=== PATIENT | male | born 1990 | race Caucasian/White ===

== ENCOUNTER 2018-01-29 16:20 | Emergency (ER) | payer OTHER ==
[2018-01-29 16:24] VITALS: BP 125/73
[2018-01-29] MEDS ORDERED: Diphtheria,Pertussis(Acell),Tetanus Vaccine 0.5 ML SDV IM ONE (17:01)
--- NOTE | 2018-01-29 17:09 | EDM.PDOC ---
ED HPI GENERAL MEDICAL PROBLEM - General Chief Complaint: Laceration Stated Complaint: Laceration Time Seen by Provider: 01/29/18 16:50 Source of Information: Reports: Patient ([id number]) History Limitations: Reports: No Limitations - History of Present Illness INITIAL COMMENTS - FREE TEXT/NARRATIVE: Patient is a 27-year-old who was brought in from bowel With a laceration in the forehead at the level of the nose bridge is approximately 2 cm long patient states that while putting a boon on a Bobcat the boom hit him in the forehead causing the laceration at present time the bleeding is controlled Onset: Today Duration: Minutes: Location: Reports: Head Quality: Reports: Dull Severity: Mild Improves with: Reports: Other (Pressure) Worsens with: Reports: None Context: Reports: Trauma Associated Symptoms: Reports: No Other Symptoms Left Head Pain Score (Numeric/FACES): 1 - Related Data Allergies Allergy/AdvReac Type Severity Reaction Status Date / Time amoxicillin trihydrate Allergy Rash Verified 01/29/18 16:21 [From Augmentin] potassium clavulanate Allergy Rash Verified 01/29/18 16:21 [From Augmentin] Home Meds: Home Meds Escitalopram Oxalate [Lexapro] 20 mg PO DAILY 04/06/16 [History] Levothyroxine 75 mcg PO ACBREAKFAST 04/06/16 [History] Simvastatin [Simvastatin] 20 mg PO DAILY 04/06/16 [History] Past Medical History HEENT History: Reports: Hard of Hearing, Impaired Vision Cardiovascular History: Reports: High Cholesterol Psychiatric History: Reports: Depression Endocrine/Metabolic History: Reports: Hypothyroidism - Past Surgical History HEENT Surgical History: Reports: Cataract Surgery, Other (See Below) Other HEENT Surgeries/Procedures: [place] tooth extraction Social & Family History - Tobacco Use Smoking Status *Q: Current Every Day Smoker Years of Tobacco use: 12 Packs/Tins Daily: 1 - Caffeine Use Caffeine Use: Reports: Soda Other Caffeine Use: 48 oz daily - Alcohol Use Days Per Week of Alcohol Use: 6 Number of Drinks Per Day: 7 Total Drinks Per Week: 42 - Recreational Drug Use Recreational Drug Use: No ED ROS GENERAL - Review of Systems Review Of Systems: See Below Constitutional: Reports: No Symptoms HEENT: Reports: No Symptoms Respiratory: Reports: No Symptoms Cardiovascular: Reports: No Symptoms Endocrine: Reports: No Symptoms GI/Abdominal: Reports: No Symptoms : Reports: No Symptoms Musculoskeletal: Reports: No Symptoms Skin: Reports: No Symptoms Neurological: Reports: No Symptoms Psychiatric: Reports: No Symptoms Hematologic/Lymphatic: Reports: No Symptoms Immunologic: Reports: No Symptoms ED EXAM, SKIN/RASH Exam: See Below Exam Limited By: No Limitations General Appearance: Alert, WD/WN, No Apparent Distress Ears: Normal External Exam, Normal Canal, Hearing Grossly Normal, Normal TMs Nose: Normal Inspection, Normal Mucosa, No Blood Throat/Mouth: Normal Inspection, Normal Lips, Normal Teeth, Normal Gums, Normal Oropharynx, Normal Voice, No Airway Compromise Head: Atraumatic, Normocephalic Neck: Normal Inspection, Supple, Non-Tender, Full Range of Motion Respiratory/Chest: No Respiratory Distress, Lungs Clear, Normal Breath Sounds, No Accessory Muscle Use, Chest Non-Tender Cardiovascular: Normal Peripheral Pulses, Regular Rate, Rhythm, No Edema, No Gallop, No JVD, No Murmur, No Rub GI/Abdominal: Normal Bowel Sounds, Soft, Non-Tender, No Organomegaly, No Distention, No Abnormal Bruit, No Mass (Male) Exam: Deferred Rectal (Males) Exam: Deferred Back Exam: Normal Inspection, Full Range of Motion, NT Extremities: Normal Inspection, Normal Range of Motion, Non-Tender, No Pedal Edema, Normal Capillary Refill Neurological: Alert, Oriented, CN II-XII Intact, Normal Cognition, Normal Gait, Normal Reflexes, No Motor/Sensory Deficits Psychiatric: Normal Affect, Normal Mood Skin: Warm, Dry, Other (Laceration forehead) Location, Skin: Head (Laceration forehead 2 cm) Lymphatic: No Adenopathy Course - Vital Signs Last Recorded V/S: Last Vital Signs Temp 98.5 F 01/29/18 16:20 Pulse 83 01/29/18 16:20 Resp 16 01/29/18 16:20 BP 125/73 01/29/18 16:20 Pulse Ox 98 01/29/18 16:20 - Orders/Labs/Meds Orders: Active Orders 24 hr Category Date Time Status Vaccines to be Administered [RC] PER UNIT ROUTINE Care 01/29/18 17:02 Active Meds: Medications Discontinued Medications Generic Name Dose Route Start Last Admin Trade Name Freq PRN Reason Stop Dose Admin Diphtheria/Tetanus/Acell Pertussis 0.5 ml 01/29/18 17:01 Adacel IM 01/29/18 17:02 .ONCE ONE Departure - Departure Time of Disposition: 17:10 Disposition: Home, Self-Care 01 Condition: Good Clinical Impression: Broken skin, Laceration of forehead without complication - Discharge Information Referrals: Mary Beth Pantoja PA [Primary Care Provider] - Care Plan Goals: Patient seen in the ER wound cleaned with disinfectant and closed with Dermabond patient tolerated procedure well after procedure patient was given a DPT because is been close to 9 years since last tetanus shot. - My Orders Last 24 Hours: My Active Orders 01/29/18 17:02 Vaccines to be Administered [RC] PER UNIT ROUTINE - Assessment/Plan Last 24 Hours: My Active Orders 01/29/18 17:02 Vaccines to be Administered [RC] PER UNIT ROUTINE
== END 2018-01-29 17:30 | disposition home or self-care (01) ==
LOC: LL.ED 16:20
DX: S01.81XA Laceration without foreign body of other part of head, initial encounter (principal); E78.00 Pure hypercholesterolemia, unspecified; E03.9 Hypothyroidism, unspecified; F17.210 Nicotine dependence, cigarettes, uncomplicated; Z23 Encounter for immunization; Z88.1 Allergy status to other antibiotic agents; Z88.8 Allergy status to other drugs, medicaments and biological substances; Z79.899 Other long term (current) drug therapy; W22.8XXA Striking against or struck by other objects, initial encounter
CPT/HCPCS: 12011; 90471; 90715; 99282

== ENCOUNTER 2018-03-01 10:16 | Emergency (ER) | payer BC, OTHER ==
[2018-03-01 10:19] VITALS: BP 110/70
--- NOTE | 2018-03-01 11:04 | EDM.PDOC ---
ED HPI GENERAL MEDICAL PROBLEM - General Chief Complaint: Respiratory Problem Stated Complaint: Cold Symptoms x 2 weeks Time Seen by Provider: 03/01/18 10:45 Source of Information: Reports: Patient History Limitations: Reports: No Limitations - History of Present Illness INITIAL COMMENTS - FREE TEXT/NARRATIVE: Patient is a 27-year-old who was been sick for approximately 2 weeks says that he went to the clinic complaining of cough fever, and body aches was seen in diagnosed with viral bronchitis and started on steroid it was given a steroid shot felt better for 2 days then patient progressively got worse now complains of low-grade fever generalized aches uncontrollable coughing sinus pressure white count increased to 15,000 X-ray was clear exam revealed tenderness over frontal and maxillary sinuses see H&P Onset: Gradual Duration: Week(s):, Getting Worse Location: Reports: Face, Chest Quality: Reports: Ache, Pressure Severity: Moderate Improves with: Reports: None Worsens with: Reports: Rest Context: Reports: Other (Sick) Associated Symptoms: Reports: Cough, Fever/Chills, Headaches Treatments [employer]: Reports: Acetaminophen, Cold Therapy Sore Throat Pain Score (Numeric/FACES): 3 Chest Pain Score (Numeric/FACES): 5 - Related Data Allergies Allergy/AdvReac Type Severity Reaction Status Date / Time amoxicillin trihydrate Allergy Rash Verified 03/01/18 10:16 [From Augmentin] potassium clavulanate Allergy Rash Verified 03/01/18 10:16 [From Augmentin] Home Meds: Home Meds Escitalopram Oxalate [Lexapro] 20 mg PO DAILY 04/06/16 [History] Levothyroxine 75 mcg PO ACBREAKFAST 04/06/16 [History] Simvastatin 20 mg PO DAILY 04/06/16 [History] Cefprozil [Cefzil] 500 mg PO BID 10 Days #20 tablet 03/01/18 [Rx] Past Medical History HEENT History: Reports: Hard of Hearing, Impaired Vision Other HEENT History: wears glasses. bilateral hearing aides Cardiovascular History: Reports: High Cholesterol Psychiatric History: Reports: Depression Endocrine/Metabolic History: Reports: Hypothyroidism - Past Surgical History HEENT Surgical History: Reports: Cataract Surgery, Other (See Below) Other HEENT Surgeries/Procedures: [place] tooth extraction Social & Family History - Tobacco Use Smoking Status *Q: Current Every Day Smoker Years of Tobacco use: 13 Packs/Tins Daily: 1 - Caffeine Use Caffeine Use: Reports: Energy Drinks Other Caffeine Use: 48 oz daily - Alcohol Use Days Per Week of Alcohol Use: 6 Number of Drinks Per Day: 3 Total Drinks Per Week: 18 - Recreational Drug Use Recreational Drug Use: No ED ROS GENERAL - Review of Systems Review Of Systems: See Below Constitutional: Reports: Fever, Weakness, Weight Loss HEENT: Reports: Sinus Problem Respiratory: Reports: Cough Cardiovascular: Reports: No Symptoms Endocrine: Reports: No Symptoms GI/Abdominal: Reports: No Symptoms : Reports: No Symptoms Musculoskeletal: Reports: No Symptoms Skin: Reports: No Symptoms ED EXAM, GENERAL - Physical Exam Exam: See Below Exam Limited By: No Limitations General Appearance: Alert, WD/WN, No Apparent Distress Ears: Normal External Exam, Normal Canal, Hearing Grossly Normal, Normal TMs Ear Exam: Bilateral Ear: Auricle Normal, Canal Normal, TM normal Nose: Normal Inspection, Normal Mucosa, No Blood, Clear Rhinorrhea Throat/Mouth: Normal Inspection, Normal Lips, Normal Teeth, Normal Gums, Normal Oropharynx, Normal Voice, No Airway Compromise Head: Atraumatic, Normocephalic, Sinus Tenderness Neck: Normal Inspection, Supple, Non-Tender, Full Range of Motion Respiratory/Chest: Wheezing, Prolonged Expiration Cardiovascular: Normal Peripheral Pulses, Regular Rate, Rhythm, No Edema, No Gallop, No JVD, No Murmur, No Rub GI/Abdominal: Normal Bowel Sounds, Soft, Non-Tender, No Organomegaly, No Distention, No Abnormal Bruit, No Mass (Male) Exam: No Hernia, Normal Inspection, Normal Prostate, Circumcised Rectal (Males) Exam: Deferred Back Exam: Normal Inspection, Full Range of Motion, NT Extremities: Normal Inspection, Normal Range of Motion, Non-Tender, Normal Capillary Refill, No Pedal Edema Neurological: Alert, Oriented, CN II-XII Intact, Normal Cognition, Normal Gait, Normal Reflexes, No Motor/Sensory Deficits Psychiatric: Normal Affect, Normal Mood Skin Exam: Warm, Dry, Intact, Normal Color, No Rash Course - Vital Signs Last Recorded V/S: Last Vital Signs Temp 97.7 F 03/01/18 10:18 Pulse 84 03/01/18 10:18 Resp 20 03/01/18 10:18 BP 110/70 03/01/18 10:18 Pulse Ox 97 03/01/18 10:18 - Orders/Labs/Meds Orders: Active Orders 24 hr Category Date Time Status Chest 2V [CR] Stat Exams 03/01/18 10:24 Taken CULTURE STREP A CONFIRMATION [] Stat Lab 03/01/18 10:26 Results STREP SCRN A RAPID W CULT CONF [] Stat Lab 03/01/18 10:26 Results Labs: Laboratory Tests 03/01/18 Range/Units 10:26 WBC 15.0 H (4.0-10.2) K/uL RBC 4.34 (4.33-5.41) M/uL Hgb 14.7 (13.1-16.8) g/dL Hct 42.5 (39.0-49.0) % MCV 97.9 D (84.0-98.0) fL MCH 33.9 H (28.2-33.3) pg MCHC 34.6 (31.7-36.0) g/dL RDW 12.9 (11.2-14.1) % Plt Count 300 (150-350) K/uL Neut % (Auto) 78.5 (45.0-80.0) % Lymph % (Auto) 14.1 (10.0-50.0) % [place] % (Auto) 6.4 (2.0-14.0) % Eos % (Auto) 0.9 (0.0-5.0) % Baso % (Auto) 0.1 (0.0-2.0) % Neut # (Auto) 11.78 H (1.40-7.00) K/uL Lymph # (Auto) 2.11 (0.50-3.50) K/uL [place] # (Auto) 0.96 (0.00-1.00) K/uL Eos # (Auto) 0.13 (0.00-0.50) K/uL Baso # (Auto) 0.02 (0.00-0.20) K/uL Departure - Departure Time of Disposition: 11:05 Disposition: Home, Self-Care 01 Condition: Fair Clinical Impression: Sinusitis - Discharge Information Referrals: Mary Beth Pantoja PA [Primary Care Provider] - Care Plan Goals: White count elevated at 15,000 x-ray was negative patient had sinusitis we'll treat with Augmentin 875 twice a day for 14 days patient allergic to Augmentin with start Cefzil 500 twice a day for 10 days - My Orders Last 24 Hours: My Active Orders 03/01/18 10:24 Chest 2V [CR] Stat 03/01/18 10:26 CULTURE STREP A CONFIRMATION [RM] Stat STREP SCRN A RAPID W CULT CONF [] Stat - Assessment/Plan Last 24 Hours: My Active Orders 03/01/18 10:24 Chest 2V [CR] Stat 03/01/18 10:26 CULTURE STREP A CONFIRMATION [RM] Stat STREP SCRN A RAPID W CULT CONF [] Stat
== END 2018-03-01 11:30 | disposition home or self-care (01) ==
LOC: LL.ED 10:16
DX: J32.9 Chronic sinusitis, unspecified (principal); E78.00 Pure hypercholesterolemia, unspecified; F17.210 Nicotine dependence, cigarettes, uncomplicated; E03.9 Hypothyroidism, unspecified; Z98.890 Other specified postprocedural states; Z88.1 Allergy status to other antibiotic agents; Z79.899 Other long term (current) drug therapy
CPT/HCPCS: 36415; 71046; 85025; 87081; 87430; 99283

== ENCOUNTER 2024-05-24 14:50 | Emergency (ER) | payer BC, MEDICARE, OTHER, SELFPAY ==
[2024-05-24] MEDS: Lactated Ringers 1,000 ML IV ONE (15:00)
[2024-05-24] MEDS ORDERED: Sodium Chloride 0.9% 10 ML Syringe FLUSH PRN (15:11)
[2024-05-24 15:18] LABS: BASOPHILS ABSOLUTE AUTO 0.05 K/uL (0.00-0.20); BASOPHILS PERCENT AUTO 0.7 % (0.0-2.0); EOSINOPHILS PERCENT AUTO 4.2 % (0.0-5.0); HEMATOCRIT 42.2 % (39.0-49.0); HEMOGLOBIN 14.3 g/dL (13.1-16.8); LYMPHOCYTES ABSOLUTE AUTO 3.05 K/uL (0.50-3.50); LYMPHOCYTES PERCENT AUTO 42.4 % (10.0-50.0); MEAN CORPUSCULAR HEMOGLOBIN 32.1 pg (28.2-33.3); MEAN CORPUSCULAR HGB CONC 33.9 g/dL (31.7-36.0); MEAN CORPUSCULAR VOLUME 94.6 fL (84.0-98.0); MONOCYTES ABSOLUTE AUTO 0.54 K/uL (0.00-1.00); MONOCYTES PERCENT AUTO 7.5 % (2.0-14.0); NEUTROPHILS ABSOLUTE AUTO 3.25 K/uL (1.40-7.00); NEUTROPHILS PERCENT AUTO 45.2 % (45.0-80.0); PLATELET COUNT,PLT 292 K/uL (150-350); RED BLOOD CELL COUNT 4.46 M/uL (4.33-5.41); WHITE BLOOD CELL COUNT,WBC 7.2 K/uL (4.0-10.2)
[2024-05-24 15:31] LABS: PROTHROMBIN TIME 9.8 SEC (9.0-11.1)
[2024-05-24] MEDS: Ondansetron 4 MG/2 ML SDV IVPUSH ONE (15:33)
[2024-05-24 15:42] LABS: ALANINE AMINOTRANSFERASE,ALT 40 U/L (12-78); ALBUMIN 3.9 g/dL (3.4-5.0); ALKALINE PHOSPHATASE 64 IU/L (46-116); ANION GAP 12.3 meq/L (7-15); ASPARTATE AMNIOTRANSFERASE,AST 21 U/L (15-37); BILIRUBIN TOTAL 0.4 mg/dL (0.2-1.0); BLOOD UREA NITROGEN,BUN 8 mg/dL (7-18); CALCIUM 8.8 mg/dL (8.5-10.1); CARBON DIOXIDE,CO2 26.1 mmol/L (21.0-32.0); CHLORIDE,CL 105 mmol/L (98-107); CREATININE 1.33 mg/dL (0.51-1.17); ESTIMATED GFR 71 mL/min (>=60); GLUCOSE RANDOM 111 mg/dL (70-99); POTASSIUM,K 3.4 mmol/L (3.5-5.1); PRO B-TYPE NATRIUR PEPT,BNPPRO 9 pg/mL (0-125); PROTEIN TOTAL,TP 7.5 g/dL (6.4-8.2); SODIUM,NA 140 mmol/L (136-145)
[2024-05-24] MEDS: Potassium Bicarbonate/Cit Ac 20 MEQ Effervescent Tab PO ONE (16:36)
[2024-05-24 19:53] VITALS: BP 113/75; PULSE 62
== END 2024-05-24 17:10 | disposition home or self-care (01) ==
LOC: LL.ED 14:50
DX: R55 Syncope and collapse (principal); E78.00 Pure hypercholesterolemia, unspecified; E03.9 Hypothyroidism, unspecified; F17.210 Nicotine dependence, cigarettes, uncomplicated; Z79.899 Other long term (current) drug therapy; Z79.890 Hormone replacement therapy; Z88.0 Allergy status to penicillin; Z88.8 Allergy status to other drugs, medicaments and biological substances
CPT/HCPCS: 36415; 80053; 83880; 84484; 85025; 85610; 93005; 96361; 96374; 99284; A9270; J2405; J7120